=== PATIENT | female | born 1990 | race Caucasian/White ===

== ENCOUNTER 2018-12-30 10:22 | Emergency (ER) | payer OTHER ==
[2018-12-30 10:27] VITALS: BP 118/85; PULSE 77; TEMP 98.1; BMI 22.3
[2018-12-30] MEDS ORDERED: ALBUTEROL SO4 2.5/IPRATROPIUM 0.5 INH SOL 3 ML VIAL.NEB. NEB ONE ×2 (10:28→10:32)
[2018-12-30] MEDS ORDERED: DEXAMETHASONE LIQUID 0.5 MG/5 ML PO ONE (10:37)
[2018-12-30] MEDS ORDERED: DEXAMETHASONE SOD PHOSPHATE 10 MG/1 ML VIAL ONE (10:40)
--- NOTE | 2018-12-30 10:44 | PDOC ---
History of Present Illness - General Chief Complaint: Asthma Stated Complaint: ASTHMA / SOB Time Seen by Provider: 12/30/18 10:34 History Source: Patient Exam Limitations: Clinical Condition - History of Present Illness Initial Comments: 12/30/18 10:40 Patient with Pmhx of Asthma presenting with complains of 3 days h/o cough with yellow sputum, wheezing, chest tightness and intermittent SOB which improves with rescue inhaler but comes back again and has been worsening while at work today. Denies CP, dizziness, N/V, fever,chills, malaise. Denies any other symptoms. Never intubated for Asthma Is this a multiple visit Asthma Patient?: No Timing/Duration: getting worse Past History - Past Medical History Allergies/Adverse Reactions: Allergies Allergy/AdvReac Type Severity Reaction Status Date / Time apple [Apple] Allergy Verified 04/21/16 16:11 tree nut [Tree Nut] Allergy Itching Verified 04/21/16 16:11 No Known Drug Allergies AdvReac Verified 04/21/16 16:11 Home Medications: Ambulatory Orders Vit/Iron Fum/Folic AC [ Tablet] 1 tab PO DAILY 04/13/16 Acetaminophen [Tylenol .Regular Strength -] 650 mg PO Q3H PRN #0 tablet Ferrous Sulfate [Feosol] 325 mg PO BIDWM ud 04/22/16 Ibuprofen [Motrin -] 200 mg PO Q4H PRN #0 tablet 04/22/16 Vitamins (Sjr) - 1 tab PO DAILY tablet 04/22/16 Albuterol Sulfate Inhaler - [Ventolin Hfa Inhaler -] 2 inh PO Q6H #1 inh Benzonatate [Tessalon Pearls -] 100 mg PO Q8H PRN #21 capsule 12/30/18 Montelukast Na [Singulair -] 10 mg PO HS #7 tablet 12/30/18 Prednisone [Deltasone] 20 mg PO BID 5 Days #10 tablet 12/30/18 Asthma: Yes (last exacerbation years ago) Cancer: No Cardiac Disorders: No COPD: No Diabetes: No HTN: No Seizures: No Thyroid Disease: No - Reproductive History (#): 0 Cervical CA: No Dysfunctional Uterine Bleeding: No Ectopic : No Endometrial CA: No Polycystic Ovaries: No Therapeutic (s) & number: No Tubal Ligation: No - Psycho Social/Smoking Cessation Hx Smoking Status: No Smoking History: Current some day smoker Have you smoked in the past 12 months: No Number of Cigarettes Smoked Daily: 1 Information on smoking cessation initiated: No Hx Alcohol Use: No Drug/Substance Use Hx: No Substance Use Type: None Hx Substance Use Treatment: No Review of Systems - Review of Systems Able to Perform ROS?: Yes Is the patient limited Yakut proficient: No Constitutional: No: Chills, Fever, Malaise HEENTM: Yes: Symptoms Reported, See HPI, Nose Congestion. No: Eye Pain, Blurred Vision, Tearing, Recent change in vision, Double Vision, Cataracts, Ear Pain, Ocular Prothesis, Ear Discharge, Nose Pain, Tinnitus, Nose Bleeding, Hearing Loss, Throat Pain, Throat Swelling, Mouth Pain, Dental Problems, Difficulty Swallowing, Mouth Swelling, Other Respiratory: Yes: Symptoms reported, See HPI, Cough, Shortness of Breath, SOB at Rest, Wheezing. No: Orthopnea, SOB with Exertion, Stridor, Productive cough , Hemoptysis, Other Cardiac (ROS): No: Symptoms Reported, See HPI, Chest Pain, Edema, Irregular Heart Rate, Lightheadedness, Palpitations, Syncope, Chest Tightness, Other ABD/GI: No: Symptoms Reported, Nausea, Vomiting All Other Systems: Reviewed and Negative *Physical Exam - Vital Signs Last Vital Signs Temp Pulse Resp BP Pulse Ox 98.1 F 77 24 H 118/85 98 12/30/18 10:25 12/30/18 10:25 12/30/18 10:25 12/30/18 10:25 12/30/18 10:25 - Physical Exam Comments: 12/30/18 11:18 GENERAL: Well developed, well nourished. Awake and alert mild respiratory acute distress. HEENT: Normocephalic, atraumatic. PERRLA, EOMI. No conjunctival pallor. Sclera are non-icteric. Moist mucous membranes. Oropharynx is clear. NECK: Supple. Full ROM. CARDIOVASCULAR: Regular rate and rhythm. No murmurs, rubs, or gallops. Distal pulses are 2+ and symmetric. PULMONARY: Mild diffuse expiratory wheeze with mild respiratory distress. No rales or rhonchi. ABDOMINAL: Soft. Non-tender. Non-distended. No rebound or guarding. No organomegaly. Normoactive bowel sounds. MUSCULOSKELETAL Normal range of motion at all joints. SKIN: Warm and dry. Normal capillary refill. No rashes. No cyanosis. NEUROLOGICAL: Alert, awake, appropriate. Gait is normal without ataxia. PSYCHIATRIC: Cooperative. Good eye contact. Appropriate mood General Appearance: Yes: Nourished, Appropriately Dressed. No: Apparent Distress ED Treatment Course - RADIOLOGY Radiology Studies Ordered: Category Date Time Status CHEST PA & LAT [RAD] Stat Radiology 12/30/18 10:38 Ordered - Medications Given in the ED: ED Medications Discontinued Medications Generic Name Dose Route Start Last Admin Trade Name Freq PRN Reason Stop Dose Admin Albuterol/Ipratropium 1 amp 12/30/18 10:32 12/30/18 10:32 Duoneb - NEB 12/30/18 10:33 1 amp NOW ONE Administration Medical Decision Making - Medical Decision Making 12/30/18 10:42 Patient with Pmhx of Asthma presenting with complains of 3 days h/o cough with yellow sputum, wheezing, chest tightness and intermittent SOB which improves with rescue inhaler but comes back again and has been worsening while at work today. Denies CP, dizziness, N/V, fever,chills, malaise. Denies any other symptoms. Never intubated for Asthma Exam significant for moderate diffused wheezing with mild respiratory distress. Symptoms likely Asthma exacerbation caused by URI vs less likely PNA vs Bronchitis. Duoneb tx ordered for wheezing and bronchospasm. Decadron 10mg PO ordered for Asthma. CXR ordered for r/o PNA 12/30/18 11:10 Patient with improvement in wheezing and bronchospasm post duoneb tx and report feeling better. CXR shows no acute infiltrate or pathology. Patient stable for discharge on tessalon perles for cough, prednisone, ventolin inhaler and singulair with pulmonology f/u Discharge - Discharge Information Problems reviewed: Yes Clinical Impression/Diagnosis: Acute asthma, Wheezing on auscultation, Cough Disposition: HOME - Admission No - Additional Discharge Information Prescriptions: Albuterol Sulfate Inhaler - [Ventolin Hfa Inhaler -] 2 inh PO Q6H #1 inh Benzonatate [Tessalon Pearls -] 100 mg PO Q8H PRN #21 capsule PRN Reason: Cough Montelukast Na [Singulair -] 10 mg PO HS #7 tablet Prednisone [Deltasone] 20 mg PO BID 5 Days #10 tablet - Follow up/Referral Referrals: Pedro Levy MD [Staff Physician] - - Patient Discharge Instructions Patient Printed Discharge Instructions: Asthma -- Adult Additional Instructions: Your chest x-rays shows no pneumonia or bronchitis. Your symptoms is likely asthma triggered by the change in weather. Take medications as prescribed. 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 Come back to ED if worsening shortness of breathe, difficulty breathing - Post Discharge Activity
== END 2018-12-30 11:20 | disposition home or self-care (01) ==
LOC: JERFT 10:22
PROC: 3E0F7GC Introduction of Other Therapeutic Substance into Respiratory Tract, Via Natural or Artificial Opening (ICD-10-PCS; principal; 2018-12-30)
DX: J45.901 Unspecified asthma with (acute) exacerbation (principal); Z91.018 Allergy to other foods
CPT/HCPCS: 71046-TC-FY; 94640; 99281-25

== ENCOUNTER 2021-05-08 07:36 | Emergency (ER) | payer OTHER ==
[2021-05-08] MEDS ORDERED: ALBUTEROL SO4 2.5/IPRATROPIUM 0.5 INH SOL 3 ML VIAL.NEB. NEB ONE ×2 (08:08→08:40)
[2021-05-08] MEDS ORDERED: predniSONE 20 MG TABLET (UD) PO ONE (08:09)
[2021-05-08 08:13] VITALS: TEMP 97.9; BMI 19.5
[2021-05-08] MEDS ORDERED: predniSONE 20 MG TABLET (UD) ONE (08:40)
[2021-05-08 11:20] VITALS: BP 128/74; PULSE 76
== END 2021-05-08 11:22 | disposition home or self-care (01) ==
LOC: JER 07:36
PROC: 3E0F7GC Introduction of Other Therapeutic Substance into Respiratory Tract, Via Natural or Artificial Opening (ICD-10-PCS; principal; 2021-05-08)
DX: J45.901 Unspecified asthma with (acute) exacerbation (principal)
CPT/HCPCS: 99284-25